=== PATIENT | female | born 2000 | race African-American/Black ===

== ENCOUNTER 2023-05-25 19:10 | Emergency (ER) | payer OTHER ==
[2023-05-25 19:21] VITALS: O2SAT 100
--- NOTE | 2023-05-25 19:22 | ED Physician Documentation ---
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 She had 2 minutes of coughing but feeling better now. No shortness of breath now. PD PAST MEDICAL HISTORY - Past Medical History Past Medical History: No Cardiovascular: None Respiratory: None Neuro: None Endocrine/Autoimmune: None GI: None TRADE EMBALMER: None : None HEENT: None Psych: None Musculoskeletal: None Derm: None - Past Surgical History Past Surgical History: No - Present Medications Home Medications: Ambulatory Orders Medication Instructions Recorded Confirmed No Known Home Medications 05/25/23 05/25/23 - Allergies Allergies/Adverse Reactions: Allergies Allergy/AdvReac Type Severity Reaction Status Date / Time No Known Drug Allergies Allergy Verified 05/25/23 19:12 - Social History Does the pt smoke?: No Smoking Status: Never smoker Does the pt drink ETOH?: No Does the pt have substance abuse?: No - Immunizations Immunizations are current?: Yes - POLST Patient has POLST: No PD ED PE NORMAL - Vitals Vital signs reviewed: Yes - General General: Alert and oriented X 3, No acute distress - Cardiac Cardiac: RRR, No murmur - Respiratory Respiratory: No respiratory distress, Clear bilaterally - Neuro Neuro: Alert and oriented X 3 Results - Vitals Vitals: Vital Signs - 24 hr 05/25/23 05/25/23 05/25/23 19:12 19:30 20:21 Temperature 36.5 C Heart Rate 87 60 60 Respiratory 16 16 16 Rate Blood Pressure 115/74 109/67 119/84 H O2 Saturation 100 100 100 Oxygen O2 Source Room air PD Medical Decision Making - ED course ED course: I called poison control shortly after evaluation. They did note that there are some cases of delayed pulmonary edema with this product and recommended observation for several hours. Thankfully on arrival though it is already been a little over 3 hours since the exposure so we will watch her for another hour. She was observed until about 8:15 PM at which time he was feeling well and on reexamination had clear lungs and normal pulse oximetry. Departure - Departure Disposition: 01 Home, Self Care Clinical Impression: Inhalation injury Condition: Good Instructions: ED Inhalation Chemical Comments: Call your doctor to arrange a follow-up appointment, make the next available appointment. In the interim, return anytime if worse or if new symptoms develop. Forms: PCP List Discharge Date/Time: 05/25/23 20:22
[2023-05-25 20:24] VITALS: BP 119/84
== END 2023-05-25 20:22 | disposition home or self-care (01) ==
LOC: ED 19:10
DX: T59.891A Toxic effect of other specified gases, fumes and vapors, accidental (unintentional), initial encounter (principal); X14.0XXA Inhalation of hot air and gases, initial encounter; Y99.1 Military activity
CPT/HCPCS: 99282; 99283

== ENCOUNTER 2023-10-24 15:28 | Outpatient (CLI) | payer OTHER ==
[2023-10-24] MEDS ORDERED: GADOTERATE MEGLUMINE 7.5 MMOL/15 ML VIAL ONE (15:36)
[2023-10-24] MEDS: GADOTERATE MEGLUMINE 7.5 MMOL/15 ML VIAL IVP ONE (17:56)
--- NOTE | 2023-10-24 19:55 | MRI Report ---
PROCEDURE: Brain W/WO INDICATIONS: HEADACHE CONTRAST: 13.6ml Clariscan TECHNIQUE: Noncontrast axial T1 spin echo, axial T2 fast spin echo, sagittal and axial FLAIR, coronal T2 fast sp in echo, axial gradient echo, axial diffusion and ADC through the brain. After the administration of contrast, axial and coronal T1 spin echo with fat saturation through the brain. COMPARISON: None. FINDINGS: Image quality: Excellent. CSF spaces: Basal cisterns are patent. No extra-axial fluid collections. Ventricles are normal in size and shape. Brain: No midline shift. No intracranial bleeds or masses. No abnormal intracranial enhancement. There is cerebral volume loss for age. There is periventricular white matter chronic small vessel is chemic change. The brainstem appears normal. Diffusion-weighted images demonstrate no acute ischemi c insults. No chronic ischemic insults. Normal intravascular flow voids are present. Skull and face: Calvarial marrow is normal in signal. Orbits appear normal. Sinuses: Sinuses and mastoids appear clear. IMPRESSION: No cause of headache can be seen on these images. No masses or abnormal enhancement can be seen. Reviewed by: David Haider MD on 10/24/2023 6:54 PM AKTORREY Approved by: David Haider MD on 10/24/2023 6:54 PM AKDT Station ID: [id number]
== END 2023-10-24 15:29 | disposition home or self-care (01) ==
LOC: DI 15:28
PROVIDERS: ATTEND Family Medicine
DX: R51.9 Headache, unspecified (principal)